=== PATIENT | male | born 1955 | race Caucasian/White ===

== ENCOUNTER 2017-07-08 15:11 | Outpatient (CLI) | payer BC ==
[2014-12-18 11:41] VITALS: O2SAT 96
== END 2017-07-08 15:12 | disposition home or self-care (01) ==
LOC: CONVCARE 15:11
PROVIDERS: ATTEND Orthopaedic Surgery
DX: M75.41 Impingement syndrome of right shoulder (principal)
CPT/HCPCS: 73030

== ENCOUNTER 2017-08-03 08:33 | Day surgery (SDC) | payer BC ==
[~2017-08-03 08:33] MED LIST: LIDOCAINE HCL 1% MPF SOL ONE; PROPOFOL 500 MG/50 ML EMU IV ONE
[2017-08-03 10:37] VITALS: TEMP 97
[2017-08-03 10:57] VITALS: RESP 20
[2017-08-03 11:12] VITALS: BP 163/57; PULSE 60; O2SAT 98
== END 2017-08-03 11:40 | disposition home or self-care (01) ==
LOC: SURG 08:33
PROVIDERS: ATTEND Internal Medicine Gastroenterology
DX: Z12.11 Encounter for screening for malignant neoplasm of colon (principal); K64.4 Residual hemorrhoidal skin tags; K57.30 Diverticulosis of large intestine without perforation or abscess without bleeding; K64.8 Other hemorrhoids; D12.2 Benign neoplasm of ascending colon; D12.0 Benign neoplasm of cecum; K63.5 Polyp of colon
CPT/HCPCS: 99001; J2001; J2704